=== PATIENT | male | born 1995 | race Two or more races ===

== ENCOUNTER 2020-02-16 19:31 | Inpatient (IN) | payer SELFPAY ==
[~2020-02-16] VITALS: Ht 170.2 cm; Wt 82.7 kg
[2020-02-16] MEDS ORDERED: SODIUM CHLORIDE 0.9% 1,000 ML IV ONE (20:15)
[2020-02-16] MEDS ORDERED: ACETAMINOPHEN 325 MG TAB PO ONE (20:15)
[2020-02-16 20:52] LABS: Basophils # (auto) 0 10 ^3/uL (0-0.2); Eosinophils # (auto) 0 10 ^3/uL (0-0.8); Eosinophils % (auto) 0.2 % (0.0-7.0); Hemoglobin 14.4 g/dL (13.5-17.5); Lymphocytes # (auto) 1.5 10 ^3/uL (0.4-5.4)
[2020-02-16 20:53] LABS: Basophils % (auto) 0.2 % (0.0-2.0); Hematocrit 44.6 % (41.0-53.0); Mean Corpuscular Hemoglobin 27.4 pg (28.0-32.0); Mean Corpuscular Hgb Conc. 32.4 g/dL (32.0-36.0); Mean Corpuscular Volume 84.8 fL (80.0-100.0); Monocytes # (auto) 0.7 10 ^3/uL (0-1.3); Monocytes % (auto) 5.2 % (0.0-12.0); Neutrophils # (auto) 10.4 10 ^3/uL (1.6-8.6); Neutrophils % (auto) 82.4 % (37.0-80.0); Platelet Count (auto) 474 10^3/uL (140-450); Red Blood Cells 5.26 10^6/uL (4.5-5.90); Red Cell Distribution Width 13.2 % (11.8-14.3); White Blood Cell 12.6 10^3/uL (4.4-10.8)
[2020-02-16 21:07] LABS: Alanine Aminotransferase 28 U/L (16-61); Albumin 4.1 g/dL (3.4-5.0); Anion Gap 11 (5-15); Aspartate Aminotransferase 27 U/L (15-37); BUN/Creatinine Ratio 5.7; Blood Alcohol < 3.0 mg/dL (0-5); Blood Urea Nitrogen 6 mg/dL (7-18); Calcium 9.2 mg/dL (8.5-10.1); Carbon Dioxide 23 mmol/L (21-32); Chloride 106 mmol/L (98-107); GFR African American 114 mL/min; GFR Non-African American 94 mL/min; Glucose 137 mg/dL (74-106); Magnesium 2.5 mg/dL (1.6-2.6); Potassium 3.3 mmol/L (3.5-5.1); Sodium 140 mmol/L (136-145)
[2020-02-16 21:09] LABS: Lactic Acid w/Reflex 4.3 mmol/L (0.4-2.0)
[2020-02-16 21:12] LABS: Alkaline Phosphatase 138 U/L (45-117); Bilirubin, Total 0.4 mg/dL (0.2-1.0); Total Protein 8.4 g/dL (6.4-8.2)
[2020-02-16] MEDS ORDERED: PIPERACILLIN-TAZOB 3.375GM 100 ML IV ONE (22:15)
[2020-02-16] MEDS ORDERED: VANCOMYCIN 1GM/250ML 250 ML IV ONE (22:15)
[2020-02-16] MEDS ORDERED: DEXTROSE (50%) 50ML SYRG IV PRN (23:30)
[2020-02-16] MEDS ORDERED: ACETAMINOPHEN 325 MG TAB PO PRN (23:30)
[2020-02-16] MEDS ORDERED: VANCOMYCIN PER PHARMACY 0 MG IV SCH (23:30)
[2020-02-16] MEDS ORDERED: MORPHINE SULF INJ 2 MG/ML SYRINGE 1ML IV PRN (23:30)
[2020-02-16] MEDS ORDERED: SODIUM CHLORIDE 0.9% 1,000 ML IV SCH (23:30)
[2020-02-16] MEDS ORDERED: MORPHINE SULFATE 4 MG/ML SYR/VIAL IV PRN (23:30)
[2020-02-16] MEDS ORDERED: HYDROcodone-ACET 5/325MG TAB PO PRN (23:30)
[2020-02-16] MEDS ORDERED: ONDANSETRON HCL 4 MG/2 ML VIAL IV PRN (23:30)
[2020-02-16] MEDS ORDERED: DOCUSATE SOD 100 MG CAP PO PRN (23:30)
[2020-02-16] MEDS ORDERED: POTASSIUM CHL 20 Meq TABLET PO ONE (23:30)
[2020-02-16] MEDS ORDERED: NITROGLYCERIN 0.4 MG SL TAB SL PRN (23:30)
[2020-02-16 23:42] LABS: INR 1.05 (0.9-1.15); Partial Thromboplastin Time 27.1 sec (23.0-31.2)
--- NOTE | 2020-02-17 00:32 | NUR ---
Covid-19 in house walked to lab by SANTANA Tejeda.
[2020-02-17 01:11] VITALS: BP 117/67
--- NOTE | 2020-02-17 02:57 | NUR ---
Telemetry admit from JEEVANMARY Villela admitted to Telemetry unit after SBAR received. Patient oriented to TYREL KAPOOR RN primary RN, unit, room, bed, and unit policies regarding patient care and visiting hours. Patient now on continuous telemetry monitoring, tele box # 4 and telemetry reading on arrival to unit is Sinus Rhythm at 78BPM. Patient placed on bedside oxygen, weighed by bedscale and encouraged to call if they need something. All questions and concerns addressed, patient verbalized understanding.
--- NOTE | 2020-02-17 03:52 | NUR ---
ER CALLED NEURO CONSULT WITH DR. MENJIVAR.
[2020-02-17 05:00] VITALS: BP 120/65
[2020-02-17 05:07] LABS: Basophils # (auto) 0 10 ^3/uL (0-0.2); Basophils % (auto) 0.1 % (0.0-2.0); Eosinophils # (auto) 0 10 ^3/uL (0-0.8); Eosinophils % (auto) 0.4 % (0.0-7.0); Hematocrit 38.3 % (41.0-53.0); Lymphocytes # (auto) 2.4 10 ^3/uL (0.4-5.4); Lymphocytes % (auto) 23.8 % (10.0-50.0); Mean Corpuscular Hemoglobin 28.8 pg (28.0-32.0); Mean Corpuscular Hgb Conc. 33.9 g/dL (32.0-36.0); Monocytes % (auto) 9.8 % (0.0-12.0); Neutrophils # (auto) 6.8 10 ^3/uL (1.6-8.6); Neutrophils % (auto) 65.9 % (37.0-80.0); Nucleated Red Blood Cells % 0.1 %; Platelet Count (auto) 388 10^3/uL (140-450); Red Blood Cells 4.51 10^6/uL (4.5-5.90); Red Cell Distribution Width 13.2 % (11.8-14.3); White Blood Cell 10.3 10^3/uL (4.4-10.8)
[2020-02-17 05:23] LABS: Albumin 3.3 g/dL (3.4-5.0); Calcium 8.3 mg/dL (8.5-10.1); Potassium 3.4 mmol/L (3.5-5.1)
[2020-02-17 05:28] LABS: BUN/Creatinine Ratio 7.4; Bilirubin, Total 0.5 mg/dL (0.2-1.0); Total Protein 6.6 g/dL (6.4-8.2)
[2020-02-17] MEDS: ACCU-CHEK COMFORT CURVE STRIP VI SCH ×2 (06:17→11:30)
[2020-02-17] MEDS: InsuLIN REG 1unit/0.01ml Soln (100units/ml) SC SCH ×2 (06:18→11:30)
[2020-02-17] MEDS: PIPERACILLIN-TAZOB 3.375GM 100 ML IV SCH ×2 (06:40→13:55)
--- NOTE | 2020-02-17 07:20 | NUR ---
Opening shift note Assumed care patient in bed AOx4. No s/s of distress noted, patient on RA, denies pain at this time. Update on POC provided and all questions answered. Will continue care.
[2020-02-17 08:41] VITALS: BP 119/64
[2020-02-17 08:52] LABS: Urine Bacteria NONE SEEN /hpf (None Seen); Urine Blood Negative /uL (Negative); Urine Mucus FEW (None Seen); Urine Specific Gravity 1.013 (1.001-1.035); Urine WBC 1 /hpf (0 - 3)
--- NOTE | 2020-02-17 09:01 | NUR ---
UA sent Urine sample collected and sent to lab via bullet.
[2020-02-17 09:11] LABS: Alcohol, Urine < 3.0 mg/dL (0-10); Amphetamine Screen, Urine NEGATIVE (NEGATIVE); Barbiturate Scree,Urine NEGATIVE (NEGATIVE); Benzodiazephine Screen, Urine NEGATIVE (NEGATIVE); Cannabinoid Screen, Urine POSITIVE (NEGATIVE); Cocaine Screen, Urine NEGATIVE (NEGATIVE); Opiate Scree,Urine NEGATIVE (NEGATIVE)
[2020-02-17 09:20] LABS: Phencyclidine Screen, Urine NEGATIVE (NEGATIVE)
[2020-02-17] MEDS: ENOXAPARIN SOD 40 MG/0.4 ML SYRINGE SC SCH (10:00)
[2020-02-17] MEDS ORDERED: PANTOPRAZOLE 40 MG/10 ML VIAL INJ IV SCH (10:00)
[2020-02-17] MEDS ORDERED: VANCOMYCIN 1GM/250ML 250 ML IV SCH (10:00)
--- NOTE | 2020-02-17 10:20 | NUR ---
medication held/refused Patient refusing administration of scheduled 1000 Lovenox at this time. Patient states he wishes to obtain Covid-19 results before he initiates treatment related medications. Patient also requesting to have scheduled 1000 Vancomycin held at this time as he wishes to speak with MD first and obtain information regarding medication purpose from MD. Will page MD at this time and notify medication was held.
[2020-02-17 12:25] VITALS: BP 121/72
[2020-02-17] MEDS ORDERED: POTASSIUM CHL 20 Meq TABLET PO ONE (16:30)
--- NOTE | 2020-02-17 17:05 | NUR ---
patient arrived from covid unit. alert and oriented x4. patient oriented to room and unit.
[2020-02-17 17:08] VITALS: BP 124/69
[2020-02-17] MEDS ORDERED: LORazepam 2MG/ML-1ML VIAL IV PRN (21:15)
[2020-02-17 23:52] VITALS: BP 132/79
[2020-02-18 05:45] VITALS: BP 117/76
--- NOTE | 2020-02-18 07:00 | NUR ---
Opening Shift Note Assumed care of patient, AOx4. No S/S of distress/SOB. No complaints of pain. Safety measures in place, including bed in lowest position and call light within reach. Instructed on POC and to call for assist when needed, will continue to monitor for changes.
[2020-02-18 09:00] VITALS: BP 128/77
[2020-02-18] MEDS: ENOXAPARIN SOD 40 MG/0.4 ML SYRINGE SC SCH (09:33)
--- NOTE | 2020-02-18 09:35 | NUR ---
Medication refusal Patient refused scheduled 1000 Lovenox. States "I'm scared of needles. If I need to move around every 30 minutes to prevent anything I will." Patient educated on the use of Lovenox during hospital stay. Patient continues to refuse medication at this time. Patient verbalized understanding.
--- NOTE | 2020-02-18 09:36 | NUR ---
Patient off unit for MRI.
--- NOTE | 2020-02-18 10:09 | NUR ---
Patient back on unit from MRI.
[2020-02-18 13:00] VITALS: BP 121/71
[2020-02-18 17:00] VITALS: BP 130/73
--- NOTE | 2020-02-18 18:48 | NUR ---
Closing Shift Note Patient resting in bed. No distress noted. Will give report and endorse care to the expanding machine operator RN.
[2020-02-18 22:00] VITALS: BP 131/75
--- NOTE | 2020-02-19 07:20 | NUR ---
Opening Shift Note Assumed care of patient. Patient sleeping in bed with no signs of distress noted. Will instruct patient on POC when awake. Safety measures in place, including bed locked and in lowest position and call light within reach. Will continue to monitor patient.
[2020-02-19 09:00] VITALS: BP 121/57
[2020-02-19] MEDS: ENOXAPARIN SOD 40 MG/0.4 ML SYRINGE SC SCH (10:00)
--- NOTE | 2020-02-19 10:00 | NUR ---
Medication refusal Patient refused scheduled 1000 Lovenox. Patient educated on the use of Lovenox during hospital stay. Patient continues to refuse medication at this time. Will continue to monitor.
[2020-02-19 11:09] VITALS: BP 121/57
--- NOTE | 2020-02-19 12:32 | NUR ---
Discharge instructions given to patient as ordered. Encouraged to follow up with PMD as instructed. All questions and concerns addressed. Patient verbalized understanding. IV removed with catheter intact, pressure dressing applied. Patient ambulated to main floor with all personal belongings. No distress noted at time of departure.
== END 2020-02-19 12:35 | disposition home or self-care (01) | DRG 871 ==
LOC: ER 19:31 → EDBD 19:31 → TELE 19:32 → TELE-EAST 23:36 → EAST 02-17 21:04
PROVIDERS: ADMIT Nurse Practitioner Family; ATTEND Internal Medicine
DX: A41.9 Sepsis, unspecified organism (principal); G93.41 Metabolic encephalopathy; J18.9 Pneumonia, unspecified organism; E87.2 Acidosis; E86.0 Dehydration; E87.6 Hypokalemia; F12.10 Cannabis abuse, uncomplicated; F41.9 Anxiety disorder, unspecified; Z20.828 Contact with and (suspected) exposure to other viral communicable diseases; Z83.3 Family history of diabetes mellitus; D72.829 Elevated white blood cell count, unspecified
CPT/HCPCS: 36415; 70450; 70551; 71045; 80053; 80307; 80320; 81001; 82962; 83036; 83605; 83735; 84132; 84484; 85025; 85379; 85610; 85730; 87040; 87086; 87426; 93005; 93306; 93886; 95819; C9113; G0378; J2543